=== PATIENT | female | born 1940 | race Caucasian/White ===

== ENCOUNTER 2019-01-25 10:45 | Emergency (ER) | payer MEDICARE ==
[2019-01-25] MEDS: DIPHTH/TET/ACEL PERTUSS (ADULT) 0.5 ML VIAL IM* (11:50)
[2019-01-25] MEDS: HYDROCODONE/APAP (5/325) TAB PO ×3 (13:12→13:41)
[2019-01-25] MEDS: ONDANSETRON (ODT) 4 MG TAB ODT ×3 (13:12→13:42)
== END 2019-01-25 13:53 | disposition home or self-care (01) ==
LOC: E/R 10:45
DX: S62.316A Displaced fracture of base of fifth metacarpal bone, right hand, initial encounter for closed fracture (principal); S80.211A Abrasion, right knee, initial encounter; S00.83XA Contusion of other part of head, initial encounter; W01.0XXA Fall on same level from slipping, tripping and stumbling without subsequent striking against object, initial encounter; Y92.9 Unspecified place or not applicable; Z23 Encounter for immunization
CPT/HCPCS: 29125; 70450; 70486; 73110-RT; 73130-RT; 90471; 90715; 99284-25